=== PATIENT | female | born 1975 | race Caucasian/White ===

== ENCOUNTER 2016-12-18 18:46 | Inpatient (IN) | payer BC ==
[~2016-12-18] VITALS: Ht 154.9 cm; Wt 66.2 kg
[2016-12-18 21:51] LABS: HEMOGLOBIN 12.3 gm/dl (12.3-15.3); RED BLOOD COUNT 4.15 M/UL (4.00-5.10); WHITE BLOOD COUNT 16.9 K/UL (4.5-11.0)
[2016-12-18 22:07] LABS: BUN/CREATININE RATIO 13 (0-10)
[2016-12-19 07:03] LABS: HEMOGLOBIN 12.3 gm/dl (12.3-15.3); RED BLOOD COUNT 4.22 M/UL (4.00-5.10); WHITE BLOOD COUNT 13.7 K/UL (4.5-11.0)
[2016-12-19 07:19] LABS: BUN/CREATININE RATIO 10 (0-10)
[2016-12-19] MEDS ORDERED: DITROPAN 5 MG TA5 MG PO (08:44)
[2016-12-21 07:12] LABS: HEMOGLOBIN 10.4 gm/dl (12.3-15.3)
[2016-12-21 07:21] LABS: RED BLOOD COUNT 3.63 M/UL (4.00-5.10); WHITE BLOOD COUNT 8.3 K/UL (4.5-11.0)
[2016-12-21 07:37] LABS: BUN/CREATININE RATIO 18 (0-10)
[2016-12-21] MEDS ORDERED: PERCOCET 5/325 T1 EA PO (16:16)
== END 2016-12-21 16:57 | disposition home or self-care (01) | DRG 343 ==
LOC: ER1 18:46 → M/S 12-19 02:17 → ZEROF 12-19 02:17 → M/S 12-19 08:56
PROVIDERS: Emergency Medicine; ADMIT Surgery
PROC: 0DTJ4ZZ Resection of Appendix, Percutaneous Endoscopic Approach (ICD-10-PCS; principal; 2016-12-19 10:30)
PROC: 0WQF4ZZ Repair Abdominal Wall, Percutaneous Endoscopic Approach (ICD-10-PCS; principal; 2016-12-19 10:30)
DX: K35.80 Unspecified acute appendicitis (principal); K42.9 Umbilical hernia without obstruction or gangrene; Z98.891 History of uterine scar from previous surgery; Z98.1 Arthrodesis status; M41.9 Scoliosis, unspecified; K21.9 Gastro-esophageal reflux disease without esophagitis; Z79.1 Long term (current) use of non-steroidal anti-inflammatories (NSAID); Z79.01 Long term (current) use of anticoagulants; Z79.891 Long term (current) use of opiate analgesic; Z79.899 Other long term (current) drug therapy
CPT/HCPCS: 36415; 80048; 80053; 81001; 82150; 83690; 84702; 84703; 85025; 85027; 96374; 96375; 99285; J1100; J1335; J1650; J1885; J2250; J2270; J2405; J2710; J2765; J3010; J7030; J7050; J7120; Q9962

== ENCOUNTER → 2022-02-14 | Outpatient (CLI) | payer BC ==
[~2022-02-14] MED LIST: DITROPAN 5 MG TA5 MG PO; PERCOCET 5/325 T1 EA PO
== END ==
LOC: HEART CORB 13:27
DX: R07.89 Other chest pain (principal); R00.0 Tachycardia, unspecified; Z98.890 Other specified postprocedural states; I08.2 Rheumatic disorders of both aortic and tricuspid valves
CPT/HCPCS: 93306